=== PATIENT | female | born 1945 | race Two or more races ===

== ENCOUNTER 2018-04-15 14:14 | Emergency (ER) | payer OTHER, MEDICAID ==
[~2018-04-15] VITALS: Ht 165.1 cm; Wt 98.0 kg
[~2018-04-15 14:14] MED LIST: CHOL200072 PO; CITA20TA15 PO; EPHE1TAB PO; GABA400C PO; LEVO0.0511 PO; LEVO5TAB12 PO; OMEP40EC1 PO; RANI300T6 PO; [UNRECOGNIZED DRUG - CODE] PO
[2018-04-15 14:17] VITALS: BP 155/75
--- NOTE | 2018-04-15 15:06 | NUR ---
BIB DAUGHTER, PT C/O OF KNEE PAIN, SWELLING, ECCYMOSIS ON R KNEE, UNABLE TO AMBULATE. PT. STATES SHE FELL OFF OF BED WHEN REACHING OVER PHONE, INJURED HER FINGERED, AND HIT HER HEAD. PT DENIES HEADACHE, PAIN, LOOSING CONSCIOUSNESS. PT. REPORTS RECENT VASCULAR SURGICAL INTERVENTION 9 DAYS AND 3 WKS AGO. HX--HTN, PERIPHERAL VASCULAR DISEASE, ATHRITIS, DIABETES RX: GABAPENTIN, ALBUTEROL, METFORMIN, AND 4 MORE MEDICATION PATIENT CANNOT RECALL.
--- NOTE | 2018-04-15 15:14 | NUR ---
DR. SELLERS AT BEDSIDE EVALUATING PT.
[2018-04-15] MEDS ORDERED: MORPHINE SULFATE 4 MG/ML SYR IM ONE (15:20)
--- NOTE | 2018-04-15 15:23 | NUR ---
[facility] : FAINT.
[2018-04-15 15:54] VITALS: BP 128/61
--- NOTE | 2018-04-15 15:54 | NUR ---
Patient discharged with v/s stable. Written and verbal after care instructions given and explained. Patient alert, oriented and verbalized understanding of instructions. Wheel Chair Assisted, going home with daughter. All questions addressed prior to discharge. ID band removed. Patient advised to follow up with PMD. Rx Motrin, Prednisone, and [place] given. Patient educated on indication of medication including possible reaction and side effects. Opportunity to ask questions provided and answered.
== END 2018-04-15 15:54 | disposition home or self-care (01) ==
LOC: MED 14:14
DX: M25.561 Pain in right knee (principal); R05 Cough; J45.909 Unspecified asthma, uncomplicated; E11.9 Type 2 diabetes mellitus without complications; I10 Essential (primary) hypertension; E07.9 Disorder of thyroid, unspecified; Z79.899 Other long term (current) drug therapy
CPT/HCPCS: 29505; 73562; 96372; 99283; J2270; Q0092

== ENCOUNTER 2018-10-24 20:54 | Emergency (ER) | payer OTHER, MEDICAID ==
[~2018-10-24] VITALS: Ht 154.9 cm; Wt 98.9 kg
[2018-10-24 21:08] VITALS: BP 161/74
--- NOTE | 2018-10-24 21:24 | NUR ---
PT AMBULATORY TO ER BED 9
--- NOTE | 2018-10-24 21:36 | NUR ---
PT TO ED WITH C/O LACERATION TO L THUMB X TODAY. BLEEDING CONTROLLED AT THIS TIME. SMALL LACERATION TO L THUMB APPROX 1 CM IN LENGTH NOTED. PT PLACED INTO BED, PENDING MD OCHOA.
--- NOTE | 2018-10-24 21:59 | NUR ---
Dr. Peñaloza examining patient.
[2018-10-24 22:50] VITALS: BP 158/69
--- NOTE | 2018-10-24 22:50 | NUR ---
Patient discharged with v/s stable. Written and verbal after care instructions given and explained. Patient verbalized understanding. Ambulatory with steady gait. All questions addressed prior to discharge. Advised to follow up with PMD.
== END 2018-10-24 22:50 | disposition home or self-care (01) ==
LOC: MED 20:54
DX: S61.012A Laceration without foreign body of left thumb without damage to nail, initial encounter (principal); J45.909 Unspecified asthma, uncomplicated; E11.9 Type 2 diabetes mellitus without complications; I10 Essential (primary) hypertension; Z79.899 Other long term (current) drug therapy; Z79.84 Long term (current) use of oral hypoglycemic drugs; W26.8XXA Contact with other sharp object(s), not elsewhere classified, initial encounter; Y93.89 Activity, other specified; Y92.89 Other specified places as the place of occurrence of the external cause; Y99.8 Other external cause status
CPT/HCPCS: 12001; 90471; 90715; 99283

== ENCOUNTER 2019-05-02 11:44 | Inpatient (IN) | payer OTHER, MEDICAID ==
[~2019-05-02] VITALS: Ht 152.4 cm; Wt 98.4 kg
[~2019-05-02 11:44] MED LIST changes: -OMEP40EC1 PO; +OMEP40EC24 PO
[2019-05-02 11:50] VITALS: BP 135/55
[2019-05-02] MEDS ORDERED: MAG SULF 2000 MG/WATER PREMIX 50 ML IV ONE (12:00)
[2019-05-02] MEDS ORDERED: NACL 0.9% 500 ML IV ONE (12:00)
[2019-05-02] MEDS ORDERED: ALBUTEROL 0.083% 2.5 MG/3 ML NEBU INH ONE ×2 (12:00→13:25)
[2019-05-02] MEDS ORDERED: methylPREDNISolone SS 125 MG/2 ML VIAL IVP ONE (12:00)
[2019-05-02] MEDS ORDERED: IPRATROPIUM 0.02% 0.5 MG/2.5 ML NEBU INH ONE (12:00)
--- NOTE | 2019-05-02 12:05 | NUR ---
ERMD AT BEDSIDE EVALUATING PT
--- NOTE | 2019-05-02 12:13 | NUR ---
Breathing treatment administered by respiratory therapist at bedside.
--- NOTE | 2019-05-02 12:22 | NUR ---
FLU SWAB COLLECTED AND SENT TO LAB
[2019-05-02 12:26] LABS: BASOPHILS # (AUTO) 0.1 K/uL (0.00-0.22); BASOPHILS % (AUTO) 1.3 % (0.0-2.0); EOSINOPHILS # (AUTO) 0.7 K/uL (0-0.4); EOSINOPHILS % (AUTO) 5.8 % (0.0-4.0); HEMATOCRIT 32.5 % (36-48); LYMPHOCYTES # (AUTO) 2.3 K/uL (2.5-16.5); LYMPHOCYTES % (AUTO) 19.7 % (20.5-51.1); MEAN CORPUSCULAR HEMOGLOBIN 25 pg (27-31); MEAN CORPUSCULAR HGB CONC 31 g/dL (33-37); MEAN CORPUSCULAR VOLUME 80.7 fL (80-94); MONOCYTES # (AUTO) 1.3 K/uL (0.8-1.0); MONOCYTES % (AUTO) 10.9 % (1.7-9.3); NEUTROPHILS # (AUTO) 7.2 K/uL (1.8-7.7); NEUTROPHILS % (AUTO) 62.3 % (42.2-75.2); PLATELET COUNT (AUTO) 316 K/uL (140-450); RED BLOOD CELL COUNT(AUTO) 4.03 MIL/uL (4.20-5.40); RED CELL DISTRIBUTION WIDTH 18.4 % (11.6-13.7); WHITE BLOOD COUNT (AUTO) 11.5 K/uL (4.8-10.8)
[2019-05-02 12:44] LABS: PROTHROMBIN TIME 9.7 secs (10.8-13.4)
[2019-05-02 12:48] LABS: ALBUMIN 3.1 g/dL (3.4-5.0); ASPARTATE AMINOTRANSFERASE 21 U/L (15-37); CARBON DIOXIDE 28.8 mmol/L (21-32); CHLORIDE 109 mmol/L (98-107); POTASSIUM 4.8 mmol/L (3.5-5.1); SODIUM SERUM 143 mmol/L (136-145); TOTAL BILIRUBIN 0.2 mg/dL (0.0-1.0); UREA NITROGEN, BLOOD 22 mg/dL (7-18)
--- NOTE | 2019-05-02 12:52 | NUR ---
Dr. Mello is re-evaluating the patient at bedside.
[2019-05-02 13:00] LABS: GLUCOSE 36 mg/dL (74-106)
--- NOTE | 2019-05-02 13:03 | NUR ---
C/O SOB , FATIGUE, HACKING MOIST COUGH, BODYACHES--- FULL CLEAR SPEECH, WITH OBVIOUS ACCESSORY MUSCLE USE NOTED NASAL FLARE, SUPRACLAVICULAR, AND INTERCOSTAL MUSCLE USE NOTED PLACED ON 3L NC AND MONITOR----RT CALLED FOR BREATHING TX
--- NOTE | 2019-05-02 13:06 | NUR ---
ORANGE JUICE PROVIDED---PT REMAINS ALERT FULL SPEECH WITH ME AND DAUGHTER. FOOD TRAY ORDERED
[2019-05-02] MEDS ORDERED: NACL 0.9% 1,000 ML IV SCH (13:27)
[2019-05-02] MEDS ORDERED: HYDROcodone/APAP 5/325 MG 1 TAB TAB PO PRN ×2 (13:30→16:05)
[2019-05-02] MEDS ORDERED: DOCUSATE SODIUM 100 MG GELCAP PO PRN (13:30)
[2019-05-02] MEDS ORDERED: ACETAMINOPHEN 325 MG TAB PO PRN ×2 (13:30→16:05)
[2019-05-02] MEDS ORDERED: MORPHINE SULFATE 2 MG/ML SYR IVP PRN (13:30)
[2019-05-02] MEDS ORDERED: ONDANSETRON 4 MG/2 ML VIAL IM/IVP PRN (13:30)
[2019-05-02] MEDS ORDERED: IBUP-2213 PO (13:32)
[2019-05-02] MEDS ORDERED: METF1000 PO (13:32)
[2019-05-02] MEDS ORDERED: MONT10TA35 PO (13:32)
[2019-05-02] MEDS ORDERED: WARF1TAB PO (13:32)
--- NOTE | 2019-05-02 13:35 | NUR ---
Dr. Thomas is evaluating the patient at bedside.
[2019-05-02 14:10] VITALS: BP 141/53
--- NOTE | 2019-05-02 14:10 | NUR ---
RECEIVED PATIENT FROM ED VIA [facility]. RECEIVED REPORT FROM IRVIN ED NURSE. PATIENT IS ALERT AND ORIENTED X4. ABLE TO AMBULATE FROM GURNEY TO BED WITH ASSIST. O2 VIA NC @ 2L PLACED. PATIENT ADMITTED FOR DX: COPD EXACERBATION. PLAN OF CARE DISCUSSED WITH PATIENT AND DAUGHTER. ORIENTED PATIENT TO STAFF AND ROOM. CALL LIGHT WITHIN REACH. BED IN LOW POSITION. SAFETY MEASURES IN PLACE. Addendum: 05/02/19 at 1800 by Lazaro Salazar RN ADDITION TO NOTES: SKIN INTACT. IV INTACT AND PATENT TO RIGHT HAND 22G SALINE LOCK.
[2019-05-02] MEDS ORDERED: ALBUTEROL SULFATE/IPRATROPIU 3 ML SOL IH PRN (14:20)
--- NOTE | 2019-05-02 14:23 | NUR ---
Patient will be admitted to care of DR. REA. Admited to TELEMETRY. Will go to room 121A. Belongings list completed. Report to JUNIOR SANTAMARIA.
[2019-05-02 15:14] LABS: MAGNESIUM 1.6 mg/dL (1.8-2.4); PHOSPHORUS 3.4 mg/dL (2.5-4.9); THYROID STIMULATING HORMONE 2.82 uIU/mL (0.34-3.74)
--- NOTE | 2019-05-02 15:50 | NUR ---
PAGED DR. BAIG FOR ADMIT ORDERS.
[2019-05-02 16:00] VITALS: BP 121/54
[2019-05-02] MEDS ORDERED: IBUPROFEN 600 MG TAB PO SCH (16:00)
--- NOTE | 2019-05-02 16:00 | NUR ---
DR. BAIG WILL PLACE ADMIT ORDERS FOR PATIENT.
[2019-05-02] MEDS ORDERED: DEXTROSE 50% 50 ML SYR IVP PRN (16:05)
[2019-05-02] MEDS ORDERED: ONDANSETRON 4 MG/2 ML VIAL IVP PRN (16:05)
[2019-05-02] MEDS: BLOOD GLUCOSE MONITORING 1 DEV DEV FS SCH ×2 (16:44→20:54)
[2019-05-02] MEDS ORDERED: WARFARIN 1 MG TAB PO SCH (17:00)
[2019-05-02] MEDS: INSULIN LISPRO SLIDING SCALE 100 UNITS/ML VIAL SUBQ PRN ×2 (17:34→20:46)
[2019-05-02] MEDS: HYDROcodone/APAP 5/325 MG 1 TAB TAB PO PRN (17:47)
--- NOTE | 2019-05-02 17:50 | NUR ---
PATIENT MEDICATED FOR C/O GENERALIZED PAIN. PATIENT IS ALERT AND VERBALLY RESPONSIVE. DENIES SOB AT THIS TIME. O2 @ 2L VIA NC. PATIENT NOW SITTING UP FOR DINNER. NO S/S OF DISTRESS NOTED. FAMILY AT BEDSIDE. SAFETY MEASURES IN PLACE. IV INTACT AND PATENT TO RIGHT HAND 22G WITH SALINE LOCK. CALL LIGHT WITHIN REACH.
[2019-05-02] MEDS ORDERED: ALBUTEROL SULFATE/IPRATROPIU 3 ML SOL IH SCH ×2 (18:00→19:00)
--- NOTE | 2019-05-02 19:05 | NUR ---
REPORT GIVEN TO NIGHT NURSE. PATIENT IN STABLE CONDITION.
--- NOTE | 2019-05-02 19:10 | NUR ---
RECEIVED REPORT FROM EDUARDO PACHECO DAYSHIFT NURSE AT BEDSIDE FOR CONTINUITY OF CARE, PT IN STABLE CONDITION.
[2019-05-02] MEDS: IPRATROPIUM 0.02% 0.5 MG/2.5 ML NEBU INH SCH (19:30)
[2019-05-02] MEDS: ALBUTEROL 0.083% 2.5 MG/3 ML NEBU INH SCH (19:30)
--- NOTE | 2019-05-02 19:30 | NUR ---
PATIENT STATES THAT IF SHE IS ASLEEP AT 0100 DO NOT WAKE FOR HHN THERAPY
[2019-05-02 20:00] VITALS: BP 123/52
--- NOTE | 2019-05-02 20:00 | NUR ---
FAMILY AT BEDSIDE, REQUEST ORDERED FROM MD REGARDING PAIN RELIEVING FOOT CREAM SHE USES AT HOME NEEDED (DICLOFENAC SODIUM 1% GEL). WILL PAGE ADMITTING MD BAIG FOR ORDER. PT AND FAMILY CONCERNED ABOUT RECEIVING ORDERED NEURONTIN. PT AND FAMILY ASSURED THAT PT WILL RECEIVED ALL ORDERED MEDICATIONS. PT IN BED LYING DOWN WITH 2 LITER N/S. RESPIRATIONS EVEN AND UNLABORED. PT SKIN INTACT, SHE HAS 22G IV SITE SALINE LOCKED IN PLACE AND FLUSHED PATENT. V/S FOLLOWS: T 99.1 P 80 R 20 B/P 123/52 02 94% WITH 2 LITERS VIA N/C. PT BED IS LOW, SIDE RAIL SON LEFT SIDE DOWN, PT SAYS SHE HAS A DIFFICULTY TIME WITH PIVOT TRANSFER TO COMMODE WITH SIDE RAIL UP. ALL OTHER UNIVERSAL FALLS PRECAUTIONS IN PLACE.
[2019-05-02] MEDS: metFORMIN 500 MG TAB PO SCH (20:25)
[2019-05-02] MEDS: methylPREDNISolone SS 40 MG/ML VIAL IVP SCH (20:25)
[2019-05-02] MEDS: MONTELUKAST SODIUM 10 MG TAB PO SCH (20:26)
[2019-05-02] MEDS: GABAPENTIN 300 MG CAP PO SCH (20:26)
[2019-05-02] MEDS ORDERED: methylPREDNISolone SS 125 MG/2 ML VIAL IVP SCH (21:00)
--- NOTE | 2019-05-02 21:00 | NUR ---
PT RECEIVED TYLENOL FOR MILD H/A AND COOLING MEASURES ALONG WITH ICE PACKS. PT FINGERSTICK IS 407. MD BAIG PAGED REGARDING PT FINGERSTICK AND REQUESTED FOOT CREAM ORDER. MD BAIG PAGED BACK , HE SAID OK TO ORDER (DICLOFENAC SODIUM GEL) AT HOME MEDICATION FOR FOOT PAIN AND HE WAS MADE AWARE THAT FINGERSTICK IS 407. ORDERED TO GIVEN THE ORDERED INSULIN 10 UNITS HUMALOG COVERAGE. WILL CONTINUE TO MONITOR PT BLOOD SUGAR. PT ALSO RECEIVED ORDERED SOLUMEDROL IVP, GLUCAPHAGE, NEURONTIN AND SINGULAIR ORDERED. EDUCATION REGARDING MEDICATION PROVIDED IN [place] AT BEDSIDE,. WELL SIDE EFFECTS OF MEDICATION. PT VERBALIZED UNDERSTANDING. ALL REQUESTED NEEDS ATTENDED BY STAFF. AND CALL QUIGLEY IN REACH.
[2019-05-03] VITALS: BP 105/40
[2019-05-03] MEDS: LORazepam 2 MG/ML VIAL IVP PRN (00:06)
--- NOTE | 2019-05-03 00:10 | NUR ---
PT UP TO SINK AND BACK TO BRUSH TEETH STANDBY ASSISTANCE PROVIDED. PT C/O OF RESTLESSNESS AN NOT BEING ABLE TO SLEEP. PT DID SAY THAT SHE NO LONGER HAS PAIN IN HER FEET FROM THE DIABETIC NEUROPATHY. PT WAS GIVEN PRN/IVP ATIVAN TO PROVIDE A CALMING EFFECT. EDUCATION REGARDING MEDICATION PROVIDED TO PT BEDSIDE USING INFORMATION SECURITY DIRECTOR, PT VERBALIZED UNDERSTANDING. PT USED COMMODE AND IT WAS EMPTIED BY STAFF. PT CONTINUES ON 2 LITERS VIA N/C. V/S FOLLOWS: T 98.1 P 73 R 20 B/P 105/40 02 92% WITH 2 LITERS VIA N/C. ALL OTHER REQUESTED NEEDS ATTENDED AND CALL QUIGLEY IN REACH.
--- NOTE | 2019-05-03 00:58 | NUR ---
PATIENT ASLEEP AT THIS TIME RESTING COMFORTABLY NO SOB OBSERVED NOTED ON 05/02/2019 AT 1930 PATIENT DOES NOT WANT TO BE WAKEN FOR HHN THERAPY SAVANA/RN AWARE
[2019-05-03] MEDS: ALBUTEROL 0.083% 2.5 MG/3 ML NEBU INH SCH ×4 (01:00→19:51)
[2019-05-03] MEDS: IPRATROPIUM 0.02% 0.5 MG/2.5 ML NEBU INH SCH ×4 (01:00→19:51)
[2019-05-03 04:00] VITALS: BP 132/53
--- NOTE | 2019-05-03 04:00 | NUR ---
PT IN BED SLEEPING BUT AROUSABLE TO LIGHT TOUCH. RESPIRATIONS EVEN AND UNLABORED PT HAS 2 LITERS VIA N/C. V/S FOLLOWS: T 97.0 P 70 R 18 B/P 121/61 02 96% WITH 2 LITERS VIA N/C.
[2019-05-03] MEDS ORDERED: DICLOFENAC 25 MG TABEC PO PRN (04:35)
[2019-05-03 06:07] LABS: T4 (THYROXINE) 5.5 ug/dL (4.5-12.0)
[2019-05-03] MEDS: LEVOTHYROXINE 0.1 MG TAB PO SCH (06:09)
[2019-05-03] MEDS: methylPREDNISolone SS 40 MG/ML VIAL IVP SCH ×3 (06:11→21:28)
[2019-05-03] MEDS: INSULIN LISPRO SLIDING SCALE 100 UNITS/ML VIAL SUBQ PRN ×4 (06:18→21:23)
--- NOTE | 2019-05-03 06:20 | NUR ---
PT GIVEN ORDERED SYNTHROID. FINGERSTICK IS 249 PT GIVEN 4 UNITS HUMALOG COVERAGE. ALL REQUESTED NEEDS ATTENDED BY STAFF.
[2019-05-03] MEDS: BLOOD GLUCOSE MONITORING 1 DEV DEV FS SCH ×4 (06:22→21:14)
--- NOTE | 2019-05-03 07:15 | NUR ---
RECEIVED REPORT FROM NIGHT NURSE. PT IN BED RECEIVING A BREATHING TREATMENT. PT IS STABLE, 2L NC, RH 22G IS SL, INTRODUCE SELF, UPDATED WHITE BOARDS, CALL LIGHT WITHIN REACH.
[2019-05-03 07:42] LABS: BASOPHILS % (AUTO) 0.3 % (0.0-2.0); HEMATOCRIT 30.1 % (36-48); HEMOGLOBIN 9.2 g/dL (12.0-16.0); LYMPHOCYTES # (AUTO) 1.4 K/uL (2.5-16.5); LYMPHOCYTES % (AUTO) 10.3 % (20.5-51.1); MEAN CORPUSCULAR HEMOGLOBIN 25 pg (27-31); MEAN CORPUSCULAR HGB CONC 31 g/dL (33-37); MEAN CORPUSCULAR VOLUME 80.6 fL (80-94); MONOCYTES # (AUTO) 0.7 K/uL (0.8-1.0); MONOCYTES % (AUTO) 5.5 % (1.7-9.3); NEUTROPHILS # (AUTO) 11.2 K/uL (1.8-7.7); NEUTROPHILS % (AUTO) 83.9 % (42.2-75.2); PLATELET COUNT (AUTO) 307 K/uL (140-450); RED BLOOD CELL COUNT(AUTO) 3.74 MIL/uL (4.20-5.40); RED CELL DISTRIBUTION WIDTH 18.6 % (11.6-13.7); WHITE BLOOD COUNT (AUTO) 13.4 K/uL (4.8-10.8)
[2019-05-03 07:49] LABS: PROTHROMBIN TIME 9.9 secs (10.8-13.4)
[2019-05-03 08:00] VITALS: BP 142/64
[2019-05-03 08:16] LABS: CARBON DIOXIDE 25.1 mmol/L (21-32); CHLORIDE 105 mmol/L (98-107); GLUCOSE 242 mg/dL (74-106); POTASSIUM 5.1 mmol/L (3.5-5.1); SODIUM SERUM 138 mmol/L (136-145); UREA NITROGEN, BLOOD 28 mg/dL (7-18)
[2019-05-03] MEDS: GABAPENTIN 300 MG CAP PO SCH ×2 (08:39→21:29)
[2019-05-03] MEDS: metFORMIN 500 MG TAB PO SCH ×2 (08:40→21:29)
[2019-05-03] MEDS: CITALOPRAM 20 MG TAB PO SCH (08:40)
--- NOTE | 2019-05-03 09:00 | NUR ---
ADMINISTER PT ORDER MEDICATION AND EDUCATED PT ON SIDE EFFECTS, PT VERBALIZE UNDERSTANDING, PT TOLERATED MEDICATION, PT IS STABLE ON 2L NC, CALL LIGHT WITHIN REACH.
--- NOTE | 2019-05-03 09:06 | NUR ---
PT HAS BEEN SCREENED AND CATEGORIZED MODERATE NUTRITION RISK. PT WILL BE SEEN WITHIN 3-5 DAYS OF ADMISSION. 05/05/19-05/07/[address]
[2019-05-03 12:00] VITALS: BP 116/46
--- NOTE | 2019-05-03 12:00 | NUR ---
ADMINISTER HUMALOG, PER PROTOCOL FOR BLOOD SUGAR OF 243. PT TOLERATED MED WELL. FAMILY AT BEDSIDE, CALL LIGHT WITHIN REACH.
[2019-05-03 16:00] VITALS: BP 117/47
--- NOTE | 2019-05-03 16:50 | NUR ---
ADMINISTER HUMALOG, PER PROTOCOL FOR BLOOD GLUCOSE OF 179, PT TOLERATED WELL, CALL LIGHT WITHIN REACH.
[2019-05-03] MEDS ORDERED: WARFARIN 2.5 MG TAB PO SCH (17:00)
--- NOTE | 2019-05-03 19:20 | NUR ---
GAVE REPORT TO NIGHT NURSE FOR CONTINUITY OF CARE, PT IS RESTING IN BED ON HER CELLPHONE, PT IS STABLE, CALL LIGHT WITHIN REACH.
--- NOTE | 2019-05-03 19:25 | NUR ---
RECEIVED PT FROM DAY SHIFT NURSE PT MOROCCAN SPEAKER AAOX4 ON 06 08 LTS VIA NC, O;;N TELMETRY SR NOT SOB NOTED HL ON RT HAND PATENT INITIAL ASSESSMENT DONE
[2019-05-03 20:00] VITALS: BP 103/55
[2019-05-03] MEDS ORDERED: methylPREDNISolone SS 40 MG/ML VIAL IVP SCH (21:00)
[2019-05-03] MEDS: MONTELUKAST SODIUM 10 MG TAB PO SCH (21:29)
--- NOTE | 2019-05-03 21:30 | NUR ---
BLOOD SKUGAR TEST 237 COVERAGE WITH 4 UNITS HUMALOG SUBQ FOLLOW PROTOCOL
[2019-05-04] VITALS: BP 105/50
--- NOTE | 2019-05-04 01:00 | NUR ---
PT VOIDING WELL USING BSC ON TELEMETRY SR NOT DISTRESS SEEN AT THIS TIME
[2019-05-04] MEDS: LORazepam 2 MG/ML VIAL IVP PRN (01:22)
[2019-05-04] MEDS: IPRATROPIUM 0.02% 0.5 MG/2.5 ML NEBU INH SCH ×4 (01:35→19:42)
[2019-05-04] MEDS: ALBUTEROL 0.083% 2.5 MG/3 ML NEBU INH SCH ×4 (01:35→19:42)
--- NOTE | 2019-05-04 02:26 | NUR ---
PT VERBALIZED TO BE VERY ANXIOUS AND DIFFICULTY TO SLEEP ATIVAN GIVEN ORDER
[2019-05-04 04:00] VITALS: BP 90/44
[2019-05-04] MEDS: methylPREDNISolone SS 40 MG/ML VIAL IVP SCH ×3 (05:00→21:13)
--- NOTE | 2019-05-04 05:00 | NUR ---
SPONGE BATH GIVEN LINEN CHANGED ON TELE SR
[2019-05-04] MEDS: LEVOTHYROXINE 0.1 MG TAB PO SCH (06:04)
[2019-05-04] MEDS: BLOOD GLUCOSE MONITORING 1 DEV DEV FS SCH ×4 (06:53→21:11)
[2019-05-04] MEDS: INSULIN LISPRO SLIDING SCALE 100 UNITS/ML VIAL SUBQ PRN ×4 (06:54→21:54)
--- NOTE | 2019-05-04 07:00 | NUR ---
RECEIVED REPORT FROM NIGHT RN ANGELINA. PATIENT CAME FROM HOME, FULL CODE, NKA. PATIENT HAS AN IV TO RIGHT [place] 22G. CURRENTLY, PATIENT IS RECEIVING BREATHING TX, COUGH PRESENT, NO RESP DISTRESS NOTED. PATIENT IS AAOX4, AMBULATORY, USES BEDSIDE COMMODE. PATIENT IS ON NASAL CANNULA 2L. WILL REVIEW AND CONTINUE WITH PLAN OF CARE FOR THE DAY.
[2019-05-04 07:19] LABS: PROTHROMBIN TIME 9.8 secs (10.8-13.4)
[2019-05-04 07:23] LABS: BASOPHILS % (AUTO) 0.1 % (0.0-2.0); HEMATOCRIT 29.6 % (36-48); HEMOGLOBIN 9.2 g/dL (12.0-16.0); LYMPHOCYTES # (AUTO) 1.5 K/uL (2.5-16.5); LYMPHOCYTES % (AUTO) 9.2 % (20.5-51.1); MEAN CORPUSCULAR HEMOGLOBIN 25 pg (27-31); MEAN CORPUSCULAR HGB CONC 31 g/dL (33-37); MONOCYTES # (AUTO) 1.3 K/uL (0.8-1.0); MONOCYTES % (AUTO) 8.2 % (1.7-9.3); NEUTROPHILS # (AUTO) 13.2 K/uL (1.8-7.7); NEUTROPHILS % (AUTO) 82.5 % (42.2-75.2); PLATELET COUNT (AUTO) 324 K/uL (140-450); RED BLOOD CELL COUNT(AUTO) 3.65 MIL/uL (4.20-5.40); RED CELL DISTRIBUTION WIDTH 18.3 % (11.6-13.7)
[2019-05-04 07:26] LABS: ANION GAP 12.9 (8-16); CHLORIDE 104 mmol/L (98-107); CREATININE 0.9 mg/dL (0.6-1.3); GLUCOSE 194 mg/dL (74-106); POTASSIUM 4.9 mmol/L (3.5-5.1); SODIUM SERUM 137 mmol/L (136-145); UREA NITROGEN, BLOOD 32 mg/dL (7-18)
[2019-05-04 08:00] VITALS: BP 135/48
[2019-05-04] MEDS: CITALOPRAM 20 MG TAB PO SCH (08:37)
[2019-05-04] MEDS: metFORMIN 500 MG TAB PO SCH ×2 (08:37→21:12)
[2019-05-04] MEDS: GABAPENTIN 300 MG CAP PO SCH ×2 (08:38→21:13)
--- NOTE | 2019-05-04 08:44 | NUR ---
ADMINISTERED MORNING MEDICATION. PATIENT IS SITTING UP IN CHAIR AT BEDSIDE EATING BREAKFAST. PATIENT IS ASKING WHEN SHE WILL BE ABLE TO GO HOME. INFORMED PATIENT THAT WHEN DOCTOR MAKES HIS ROUNDS, I WILL F/U. NO FURTHER COMPLAINTS.
--- NOTE | 2019-05-04 11:30 | NUR ---
PATIENT C/O HAVING CHILLS. TOOK ORAL TEMP, 98.5.
--- NOTE | 2019-05-04 11:48 | NUR ---
ADMINISTERED 4U INSULIN SUBQ FOR BLOOD SUGAR OF 209.
[2019-05-04 12:00] VITALS: BP 115/41
--- NOTE | 2019-05-04 13:20 | NUR ---
PATIENT SITTING IN CHAIR AT BEDSIDE EATING LUNCH. NO COMPLAINTS AT THIS TIME. RT AT BEDSIDE GIVING BREATHING TX.
--- NOTE | 2019-05-04 15:10 | NUR ---
PATIENT IS SLEEPING, VISIBLE CHEST RISE AND FALL. NO COMPLAINTS AT THIS TIME.
[2019-05-04 16:00] VITALS: BP 122/47
[2019-05-04] MEDS ORDERED: WARFARIN 5 MG TAB PO SCH (17:00)
--- NOTE | 2019-05-04 17:45 | NUR ---
PATIENT STATED "I TOLD MY I DONT WANT HIM TO VISIT BECAUSE I JUST WANT TO REST".
--- NOTE | 2019-05-04 18:20 | NUR ---
PATIENT RESTING IN BED, EATING DINNER. ALL NEEDS HAVE BEEN MET AT THIS TIME. WILL ENDORSE TO HEAD BANQUET WAITER/WAITRESS FOR CONTINUITY OF CARE.
--- NOTE | 2019-05-04 19:20 | NUR ---
RECEIVED REPORT FROM DAYSHIFT NURSE AT PATIENTS BEDSIDE. PATIENT ANOx4, CURRENTLY RECEIVED BREATHING TREATMENT. PATIENT HAS NASAL CANNULA IN PLACE WITH 2LPM, SATURATIONS 97%. WHEEZING NOTED AT UPPER AND LOWER LOBES. COUGH NOTED WITH INTERMITTENT PRODUCTION, CREAMY/WHITE SECRETIONS NOTED. PATIENT GIVEN EMESIS BAG. SKIN IS WARM AND DRY, AFEBRILE. RIGHT HAND 22G PERIPHERAL IV IN PLACE, FLUSHED AND PATENT WITH NO SYMPTOMS, SALINE LOCKED. S1S2. ABDOMEN IS LARGE AND NONTENDER, ACTIVE BOWEL SOUNDS. PATIENT IS CONTINENT, AMBULATES TO BEDSIDE COMMODE, REQUESTS TO USE BATHROOM FOR BOWEL MOVEMENTS. SIDERAILS UP x3, BED LOCKED AND IN LOWEST POSITION, CALL LIGHT WITHIN REACH AND ORIENTED TO CALL LIGHT WHEN PATIENT HAS TOILETING NEEDS. WILL CONTINUE TO MONITOR.
[2019-05-04 20:00] VITALS: BP 125/46
--- NOTE | 2019-05-04 20:17 | NUR ---
PATIENT UP AND OUT OF BED TO USE RESTROOM. ABLE TO AMBULATE WITHOUT ASSISTANCE. NASAL CANNULA OFF TO USE RESTROOM. COMMODE AT BEDSIDE FOR VOIDING. PATIENT SITTING AT BEDSIDE WITH NASAL CANNULA 2L, WILL GO BACK TO BED AFTER SCHEDULED MEDS. NO COMPLAINTS AT THIS TIME.
[2019-05-04] MEDS: MONTELUKAST SODIUM 10 MG TAB PO SCH (21:14)
--- NOTE | 2019-05-04 21:30 | NUR ---
SCHEDULED MEDICATIONS ADMINISTERED. PROVIDED EDUCTION ON INDICATIONS AND SIDE EFFECTS. PATIENT VERBALIZES UNDERSTANDING. BLOOD SUGAR 205, GAVE 4 UNITS INSULIN PER SLIDING SCALE. PATIENT TOLERATES WELL. SITTING UP AT BEDSIDE, NASAL CANNULA IN PLACE 2LPM, TEST DEVELOPER IN PLACE.
--- NOTE | 2019-05-04 23:40 | NUR ---
PATIENT RESTING IN BED, LYING RIGHT LATERAL. PATIENT EXPERIENCING COUGHING EPISODES, GIVEN EMESIS BAG TO ELIMINATE SECRETIONS. PATIENT KINDLY ASKS TO CLEAN BEDSIDE COMMODE, PATIENT VOIDED. WILL CARRY OUT. PATIENT DENIES PAIN.
[2019-05-05] VITALS: BP 128/45
--- NOTE | 2019-05-05 00:25 | NUR ---
PATIENT EXPERIENCING RESTLESSNESS/ANXIETY DUE TO INABILITY TO SLEEP. PATIENT AGITATED, REQUESTING MEDICATION TO RELIEVE ANXIETY AND TO HELP SLEEP. PRN ATIVAN GIVEN. BLOOD PRESSURE AND HEART RATE STABLE. WILL CONTINUE TO MONITOR AND REASSESS.
[2019-05-05] MEDS: LORazepam 2 MG/ML VIAL IVP PRN ×2 (00:34→20:26)
[2019-05-05] MEDS: ALBUTEROL 0.083% 2.5 MG/3 ML NEBU INH SCH ×4 (01:00→20:45)
[2019-05-05] MEDS: IPRATROPIUM 0.02% 0.5 MG/2.5 ML NEBU INH SCH ×4 (01:00→20:45)
--- NOTE | 2019-05-05 01:30 | NUR ---
PT INFORMED REHAB MANAGER NOT TO WAKE HER UP WHEN SLEEPING. PT WAS SLEEPING WHEN AT 01:30 THEREFORE TX WAS NOT GIVEN. RN AT BEDSIDE.
--- NOTE | 2019-05-05 03:30 | NUR ---
PATIENT USING BEDSIDE COMMODE TO VOID. TOLERATED WELL. CALLED CONCIERGE MANAGER TO SHOW HER THERES WATER ON THE FLOOR BUT DOES NOT KNOW WHERE IT CAME FROM. PATIENT IS CONTINENT, STATES TOILET MAY HAVE OVERFLOWN WITH TOO MUCH TISSUE PAPER. PATIENT SITTING UP IN CHAIR TO ALLOW RN TO CLEAN BED AND BEDSIDE. GOWN IS CLEAN AND DRY, NO COMPLAINTS AT THIS TIME.
[2019-05-05 04:00] VITALS: BP 121/51
--- NOTE | 2019-05-05 04:55 | NUR ---
LABS DRAWN, PATIENT TOLERATED WELL. CONTINUOUS COUGH NOTED, SMALL AMOUNT OF SECRETIONS NOTED. ASSISTED PATIENT WITH REPOSITIONING. DENIES PAIN.
[2019-05-05] MEDS: LEVOTHYROXINE 0.1 MG TAB PO SCH (05:44)
[2019-05-05] MEDS: methylPREDNISolone SS 40 MG/ML VIAL IVP SCH ×2 (05:44→20:16)
[2019-05-05 06:31] LABS: BASOPHILS # (AUTO) 0.1 K/uL (0.00-0.22); BASOPHILS % (AUTO) 0.6 % (0.0-2.0); EOSINOPHILS % (AUTO) 0.3 % (0.0-4.0); HEMATOCRIT 30.9 % (36-48); HEMOGLOBIN 9.5 g/dL (12.0-16.0); LYMPHOCYTES # (AUTO) 1.3 K/uL (2.5-16.5); LYMPHOCYTES % (AUTO) 8.9 % (20.5-51.1); MEAN CORPUSCULAR HEMOGLOBIN 25 pg (27-31); MEAN CORPUSCULAR HGB CONC 31 g/dL (33-37); MEAN CORPUSCULAR VOLUME 81.2 fL (80-94); MONOCYTES # (AUTO) 0.7 K/uL (0.8-1.0); MONOCYTES % (AUTO) 4.8 % (1.7-9.3); NEUTROPHILS % (AUTO) 85.4 % (42.2-75.2); PLATELET COUNT (AUTO) 378 K/uL (140-450); RED BLOOD CELL COUNT(AUTO) 3.81 MIL/uL (4.20-5.40); WHITE BLOOD COUNT (AUTO) 14.1 K/uL (4.8-10.8)
[2019-05-05] MEDS: INSULIN LISPRO SLIDING SCALE 100 UNITS/ML VIAL SUBQ PRN ×5 (06:54→20:24)
--- NOTE | 2019-05-05 07:30 | NUR ---
RECEIVED PT FROM HEALTH AND SAFETY CONSULTANT NURSEREUBEN, PT IS AWAKE AND LYING ON THE BED WITH SIDE RAILS UP AND CALL LIGHT WITHIN REACH, IV LINE ON THE RT HAND G. 22 ON SALINE LOCK, BEDSIDE COMMODE IN PLACE, SAFETY AND FALL PRECAUTION ENFORCED, PT DENIES PAIN ON O2 2L NC, DENIES SOB, NO SIGN OF DISTRESS NOTED AND WILL CONTINUE TO MONITOR PT.
[2019-05-05 07:31] LABS: PROTHROMBIN TIME 10.4 secs (10.8-13.4)
[2019-05-05 08:00] VITALS: BP 132/58
[2019-05-05] MEDS: BLOOD GLUCOSE MONITORING 1 DEV DEV FS SCH ×4 (08:00→20:22)
[2019-05-05] MEDS: CITALOPRAM 20 MG TAB PO SCH (09:36)
[2019-05-05] MEDS: metFORMIN 500 MG TAB PO SCH ×2 (09:36→20:17)
--- NOTE | 2019-05-05 09:36 | NUR ---
PT IS AWAKE AND AM MEDICATIONS SCHEDULED WERE GIVEN AND TOLERATED IT, INSULIN WAS REFUSED BY PT FOR THE BLOOD GLUCOSE OF 157, AND PT VERBALIZED THAT SHE DID NOT EACH MUCH ON BREAKFAST. WILL MONITOR PT.
[2019-05-05] MEDS: GABAPENTIN 300 MG CAP PO SCH ×2 (09:37→20:17)
--- NOTE | 2019-05-05 09:56 | NUR ---
DR. GAVIN MADE A TELEPHONE ORDER TO CHANGE THE PT'S SOLU-MEDROL TO 40MG Q12H, ORDER READ BACK AND VERIFIED AND WILL BE CARRIED OUT.
--- NOTE | 2019-05-05 11:08 | NUR ---
DC PLANNING 73 YRS OLD FEMALE PATIENT WAS ADMITTED FROM HOME WITH A DX OF COPD EXACERBATION. PT HAS A HX OF ASTHMA, DM, COPD HTN, AND HYPOTHYROIDISM INFLUENZA A &B NEGATIVE, CXR SHOWED EARLY CHF , RIGHT BASILAR AND LLL ATELECTASIS AND OSTEOPENIA. RT PROTOCOL INITIATED, ADMINISTERED IV SOLU-MEDROL, MAG RIDER FOR MG LEVEL 1.6 AND IVF. ID CONSULT WITH DR HUTCHINSON FOR LEUKOCYTOSIS AND PULMO CONSULT DR GAVIN FOR COPD . DC PLAN TO GO HOME WHEN STABLE CM TO FOLLOW. Addendum: 05/09/19 at 0918 by Yelitza Skinner CM DC PLANNING: TODAY'S CXR CARDIOMEGALY WITH PULMONARY VASCULAR CONGESTION ,SUPERIMPOSED INFILTRATE IS NOT EXCLUDED , WBC 14.8 ON LEVAQUIN , LASIX AND SOLU-MEDROL IV . NEW ORDER [facility] EVALUATION FAXED ALL PAPERWORK TO CM TO FOLLOW Addendum: 05/09/19 at 1120 by Yelitza Skinner CM DC PLANNING SPOKE WITH DR BAIG REGARDING THE LTAC EVALUATION THAT DOES NOT MEET THE CRITERIA FOR LTAC BECAUSE OF PT IS ONLY ON ONE ABX. DR BAIG STATED HE IS WAITING FOR THE SENSITIVITY OF THE FINAL SPUTUM CULTURE. CALLED LAB SPOKE WITH CHARLES BURRIS AND STATED THERE IS NO SENSITIVITY OF MORAXELLA CATARRHALIS . WAITING FOR DR BAIG TO CALL BACK.
--- NOTE | 2019-05-05 11:40 | NUR ---
PT WAS GIVEN INSULIN 2 UNITS ON THE ABDOMEN FOR THE BLOOD GLUCOSE OF 199. TEACHING WAS GIVEN TO PT REGARDING DIABETES MANAGEMENT AND PT VERBALIZED UNDERSTANDING. WILL MONITOR PT.
[2019-05-05 12:00] VITALS: BP 133/60
[2019-05-05] MEDS ORDERED: DICLOFENAC 1% TP PRN (12:00)
--- NOTE | 2019-05-05 13:15 | NUR ---
PT IS SLEEPING NOW WITH ON THE BEDSIDE.
[2019-05-05 16:00] VITALS: BP 120/45
[2019-05-05] MEDS ORDERED: WARFARIN 5 MG TAB ONE (16:33)
[2019-05-05] MEDS ORDERED: WARFARIN 2.5 MG TAB ONE (16:33)
--- NOTE | 2019-05-05 16:48 | NUR ---
PT WAS GIVEN THE SCHEDULED ORAL MEDICATION AND INSULIN 2 UNITS ON THE ABDOMEN FOR THE BLOOD GLUCOSE OF 155, WILL MONITOR PT
[2019-05-05] MEDS ORDERED: WARFARIN 5 MG, WARFARIN 2.5 MG PO SCH ×2 (17:00)
[2019-05-05 17:33] LABS: APPEARANCE,URINE CLEAR (CLEAR); BILIRUBIN,URINE NEGATIVE (NEGATIVE); BLOOD, URINE NEGATIVE (NEGATIVE); COLOR,URINE YELLOW (YELLOW); LEUKOCYTE ESTERASE ,URINE NEGATIVE (NEGATIVE); NITRITE, URINE NEGATIVE (NEGATIVE); UGLUCOSE NEGATIVE (NEGATIVE)
--- NOTE | 2019-05-05 19:00 | NUR ---
PT IS SLEEPING. NO SIGNS OF DISTRESS. REPORT GIVEN TO PARTS ADVISOR NURSE FOR CONTINUITY OF CARE.
--- NOTE | 2019-05-05 19:18 | NUR ---
ENDORSED PT TO COIL WINDING SUPERVISOR NURSESANDY, FOR CONTINUITY FOR CARE.
--- NOTE | 2019-05-05 19:19 | NUR ---
REPORT RECEIVED FROM AM NURSE AT BEDSIDE. PT IN STABLE CONDITION. AAOX4. INTRODUCED SELF TO PT. BOARD UPDATED. NO COMPLAINTS OF PAIN. NO SOB ON 2L O2 VIA NC. AFEBRILE. PT IS AMBULATORY. IV SITE R HAND 22G SL PATENT AND INTACT. SKIN WARM, DRY, AND INTACT WITH NO OPEN WOUNDS. BED LOCKED IN LOW POSITION. CALL QUIGLEY WITHIN REACH. SAFETY PRECAUTION IN PLACE. ALL NEEDS MET AT THIS TIME.
[2019-05-05 20:00] VITALS: BP 123/40
--- NOTE | 2019-05-05 20:16 | NUR ---
SOLUMEDROL GIVEN IVP. GLUCOPHAGE, NEURONTIN, AND SINGULAR GIVEN PO. BS 156. 2 UNITS OF HUMALOG GIVEN SUBQ. PT TOLERATED WELL.
[2019-05-05] MEDS: MONTELUKAST SODIUM 10 MG TAB PO SCH (20:17)
--- NOTE | 2019-05-05 20:26 | NUR ---
ATIVAN GIVEN FOR AGITATION. PT TOLERATED WELL.
--- NOTE | 2019-05-05 21:05 | NUR ---
RECEIVED PATIENT ON 2L NASAL CANNULA, PULSE OX SAT 97%. SCHEDULED BREATHING TREATMENTS ADMINISTERED. TOLERATED TXs WELL WITHOUT ADVERSE SIDE EFFECTS. NO ACUTE RESPIRATORY DISTRESS NOTED AT THIS TIME. WILL CONTINUE TO MONITOR.
--- NOTE | 2019-05-05 22:05 | NUR ---
PT SLEEPING COMFORTABLY BUT AROUSABLE. NO S/S OF DISTRESS NOTED. WILL CONTINUE TO MONITOR.
--- NOTE | 2019-05-05 23:30 | NUR ---
PT SLEEP BUT AROUSABLE. NO S/S OF DISTRESS NOTED. VS STABLE. WILL CONTINUE TO MONITOR.
[2019-05-06] VITALS: BP 132/54
[2019-05-06] MEDS: ALBUTEROL 0.083% 2.5 MG/3 ML NEBU INH SCH ×4 (01:23→19:44)
[2019-05-06] MEDS: IPRATROPIUM 0.02% 0.5 MG/2.5 ML NEBU INH SCH ×4 (01:23→19:44)
--- NOTE | 2019-05-06 01:30 | NUR ---
PT SLEEPING COMFORTABLY BUT AROUSABLE. NO S/S OF DISTRESS NOTED. NO COMPLAINTS OF PAIN. NO SOB. AFEBRILE. WILL CONTINUE TO MONITOR.
--- NOTE | 2019-05-06 01:54 | NUR ---
SCHEDULED BREATHING TREATMENT ADMINISTERED. TOLERATED TX WELL WITHOUT ADVERSE SIDE EFFECTS. NO ACUTE RESPIRATORY DISTRESS NOTED AT THIS TIME. WILL CONTINUE TO MONITOR.
--- NOTE | 2019-05-06 03:45 | NUR ---
PT SLEEPING COMFORTABLY BUT AROUSABLE. NO S/S OF DISTRESS NOTED. RESPIRATIONS EVEN, UNLABORED, AND WNL. WILL CONTINUE TO MONITOR.
[2019-05-06 04:00] VITALS: BP 117/34
[2019-05-06] MEDS: BLOOD GLUCOSE MONITORING 1 DEV DEV FS SCH ×4 (05:02→21:05)
[2019-05-06] MEDS: LEVOTHYROXINE 0.1 MG TAB PO SCH (05:38)
--- NOTE | 2019-05-06 05:38 | NUR ---
SYNTHROID GIVEN PO. BS 154. 2 UNITS OF HUMALOG GIVEN. PT TOLERATED WELL.
[2019-05-06] MEDS: INSULIN LISPRO SLIDING SCALE 100 UNITS/ML VIAL SUBQ PRN ×4 (05:40→20:55)
[2019-05-06 06:25] LABS: PROTHROMBIN TIME 12.4 secs (10.8-13.4)
[2019-05-06 06:28] LABS: BASOPHILS % (AUTO) 0.4 % (0.0-2.0); HEMOGLOBIN 9.6 g/dL (12.0-16.0); LYMPHOCYTES # (AUTO) 1.2 K/uL (2.5-16.5); LYMPHOCYTES % (AUTO) 9.8 % (20.5-51.1); MEAN CORPUSCULAR HEMOGLOBIN 25 pg (27-31); MEAN CORPUSCULAR HGB CONC 31 g/dL (33-37); MEAN CORPUSCULAR VOLUME 80.5 fL (80-94); MONOCYTES # (AUTO) 0.9 K/uL (0.8-1.0); MONOCYTES % (AUTO) 7.5 % (1.7-9.3); NEUTROPHILS # (AUTO) 10.1 K/uL (1.8-7.7); NEUTROPHILS % (AUTO) 82.3 % (42.2-75.2); PLATELET COUNT (AUTO) 320 K/uL (140-450); RED BLOOD CELL COUNT(AUTO) 3.86 MIL/uL (4.20-5.40); RED CELL DISTRIBUTION WIDTH 18.2 % (11.6-13.7); WHITE BLOOD COUNT (AUTO) 12.3 K/uL (4.8-10.8)
--- NOTE | 2019-05-06 06:40 | NUR ---
PT SLEEPING COMFORTABLY BUT AROUSABLE. PT IN STABLE CONDITION.
[2019-05-06 06:44] LABS: ALBUMIN 2.8 g/dL (3.4-5.0); ANION GAP 15.4 (8-16); ASPARTATE AMINOTRANSFERASE 41 U/L (15-37); CARBON DIOXIDE 28.6 mmol/L (21-32); CHLORIDE 101 mmol/L (98-107); CREATININE 0.9 mg/dL (0.6-1.3); GLUCOSE 157 mg/dL (74-106); MAGNESIUM 1.6 mg/dL (1.8-2.4); PHOSPHORUS 3.6 mg/dL (2.5-4.9); SODIUM SERUM 140 mmol/L (136-145); TOTAL BILIRUBIN 0.2 mg/dL (0.0-1.0); UREA NITROGEN, BLOOD 32 mg/dL (7-18)
--- NOTE | 2019-05-06 07:15 | NUR ---
RECEIVED REPORT FROM THE ENTRY LEVEL PROJECT COORDINATOR NURSE. PT IS AWAKE AND ORIENTED. INTRODUCED MYSELF AND UPDATED THE BOARD. PT SPEAKS SOME SW[place], ENOUGH TO HAVE CONVERSATION. PT IS HERE FOR COPD EXACERBATION. PT HAS NC O2 2L. BSC AT BEDSIDE. PT IV ON R HAND 22G SL. WILL CONTINUE TO MONITOR PT.
[2019-05-06 08:00] VITALS: BP 119/41
[2019-05-06] MEDS: GABAPENTIN 300 MG CAP PO SCH ×2 (08:35→20:51)
[2019-05-06] MEDS: CITALOPRAM 20 MG TAB PO SCH (08:35)
[2019-05-06] MEDS: metFORMIN 500 MG TAB PO SCH ×2 (08:35→20:52)
[2019-05-06] MEDS: OSELTAMIVIR PHOSPHATE 75 MG CAP PO SCH ×2 (08:35→20:52)
[2019-05-06] MEDS: methylPREDNISolone SS 40 MG/ML VIAL IVP SCH ×2 (08:36→20:52)
[2019-05-06] MEDS ORDERED: MAG SULF 2000 MG/WATER PREMIX 50 ML IV SCH (08:37)
--- NOTE | 2019-05-06 08:40 | NUR ---
ADMINISTERED MORNING MEDICATION. WENT OVER ALL THE MEDS AND SIDE EFFECTS. PT VERBALIZED UNDERSTANDING. PT TOLERATED WELL. WILL CONTINUE TO MONITOR PT.
--- NOTE | 2019-05-06 10:33 | NUR ---
IV IS INFILTRATED. STARTED A NEW IV ON L WRIST 22G. PT TOLERATED WELL. ADMINISTERED MAG RIDER 2G. INFUSING WELL. WILL CONTINUE TO MONITOR PT.
[2019-05-06 12:00] VITALS: BP 132/73
[2019-05-06] MEDS ORDERED: INTERDRY CLOTH TP PRN (14:40)
[2019-05-06 16:00] VITALS: BP 106/38
[2019-05-06] MEDS ORDERED: WARFARIN 2.5 MG TAB ONE (16:47)
[2019-05-06] MEDS ORDERED: WARFARIN 5 MG TAB ONE (16:47)
[2019-05-06] MEDS ORDERED: WARFARIN 5 MG, WARFARIN 2.5 MG PO SCH ×2 (17:00)
--- NOTE | 2019-05-06 19:28 | NUR ---
ENDORSED PT TO THE PRIVATE DUTY NURSE NURSE. PT IS IN STABLE CONDITION.
--- NOTE | 2019-05-06 19:29 | NUR ---
RECEIVED BEDSIDE REPORT FROM AM SHIFT NURSE. PATIENT IS LAYING ON BED AWAKE AND ALERT. NO SOB OR DISTRESS NOTED. PATIENT IS ON 2LPM VIA NASAL CANNULA. IV ACCESS ON LEFT WRIST 22 GAUGE PATENT, INTACT AND INFUSING WELL. SKIN IS INTACT. PATIENT IS AMBULATORY. INITIAL ASSESSMENT DONE. BED IN LOW, SAFETY MEASURES IN PLACE. BOARD UPDATED. ON TELE MONITORING. CALL LIGHT WITHIN PATIENT REACH.
[2019-05-06 20:20] VITALS: BP 112/37
[2019-05-06] MEDS: MONTELUKAST SODIUM 10 MG TAB PO SCH (20:52)
[2019-05-06] MEDS: LORazepam 2 MG/ML VIAL IVP PRN (21:22)
--- NOTE | 2019-05-06 22:40 | NUR ---
PATIENT TRANSFERRED FROM ROOM 121A TO 119A AT THIS TIME PER FAMILY REQUEST. NO SOB OR DISTRESS NOTED. CALL LIGHT PLACED WITHIN PATIENT REACH. WILL CONTINUE TO MONITOR PATIENT.
--- NOTE | 2019-05-07 00:10 | NUR ---
VITALS CHECKED AT THIS TIME. NO SOB OR DISTRESS NOTED. WILL CONTINUE TO MONITOR PATIENT.
[2019-05-07 00:19] VITALS: BP 123/47
[2019-05-07] MEDS: IPRATROPIUM 0.02% 0.5 MG/2.5 ML NEBU INH SCH ×4 (01:05→19:40)
[2019-05-07] MEDS: ALBUTEROL 0.083% 2.5 MG/3 ML NEBU INH SCH ×4 (01:05→19:40)
--- NOTE | 2019-05-07 02:27 | NUR ---
VISUAL CHECK DONE AT THIS TIME. VISIBLE CHEST RISE AND FALL NOTED. WILL CONTINUE TO MONITOR PATIENT.
--- NOTE | 2019-05-07 03:30 | NUR ---
VITALS DONE AT THIS TIME. NO DISTRESS NOTED. WILL CONTINUE TO MONITOR PATIENT.
[2019-05-07 04:15] VITALS: BP 114/36
[2019-05-07 06:28] LABS: PROTHROMBIN TIME 16.7 secs (10.8-13.4)
[2019-05-07] MEDS: LEVOTHYROXINE 0.1 MG TAB PO SCH (06:28)
[2019-05-07] MEDS: INSULIN LISPRO SLIDING SCALE 100 UNITS/ML VIAL SUBQ PRN ×2 (06:28→17:00)
[2019-05-07 06:30] LABS: BASOPHILS % (AUTO) 0.2 % (0.0-2.0); LYMPHOCYTES # (AUTO) 1.2 K/uL (2.5-16.5); MEAN CORPUSCULAR HEMOGLOBIN 25 pg (27-31); MEAN CORPUSCULAR HGB CONC 31 g/dL (33-37); MONOCYTES # (AUTO) 0.7 K/uL (0.8-1.0); NEUTROPHILS # (AUTO) 10.5 K/uL (1.8-7.7); NEUTROPHILS % (AUTO) 83.8 % (42.2-75.2); PLATELET COUNT (AUTO) 349 K/uL (140-450); WHITE BLOOD COUNT (AUTO) 12.5 K/uL (4.8-10.8)
[2019-05-07] MEDS: BLOOD GLUCOSE MONITORING 1 DEV DEV FS SCH ×4 (06:33→21:00)
[2019-05-07 06:42] LABS: ANION GAP 12.7 (8-16); CARBON DIOXIDE 30.1 mmol/L (21-32); CHLORIDE 101 mmol/L (98-107); CREATININE 0.9 mg/dL (0.6-1.3); GLUCOSE 181 mg/dL (74-106); POTASSIUM 4.8 mmol/L (3.5-5.1); SODIUM SERUM 139 mmol/L (136-145); UREA NITROGEN, BLOOD 29 mg/dL (7-18)
--- NOTE | 2019-05-07 07:17 | NUR ---
PATIENT IN STABLE CONDITION. CALL LIGHT WITHIN PATIENT REACH. WILL ENDORSE TO AM SHIFT NURSE FOR CONTINUITY OF CARE.
--- NOTE | 2019-05-07 07:18 | NUR ---
RECEIVED BEDSIDE REPORT FROM AUDIO VISUAL TECH NURSE. PATIENT IS AWAKE, ALERT AND ORIENTEDX4. NO SIGNS OF DISTRESS ON 2L NC. SKIN IS INTACT, REDNESS IN ABD FOLD. INTERDRY APPLIED. PATIENT IS AMBULATORY W ASSIST TO BEDSIDE COMMODE. CONTINENT. ABLE TO MAKE NEEDS KNOWN. IV ON L WRIST 22G TKO, CLEAN, DRY AND INTACT. TELE MONITOR IN PLACE. BED IN LOW POSITION. CALL LIGHT WITHIN REACH. WILL CONTINUE TO MONITOR
[2019-05-07 08:00] VITALS: BP 99/37
[2019-05-07] MEDS: CITALOPRAM 20 MG TAB PO SCH (09:39)
[2019-05-07] MEDS: GABAPENTIN 300 MG CAP PO SCH ×2 (09:39→21:01)
[2019-05-07] MEDS: metFORMIN 500 MG TAB PO SCH ×2 (09:40→21:01)
[2019-05-07] MEDS: methylPREDNISolone SS 40 MG/ML VIAL IVP SCH ×2 (09:40→21:00)
[2019-05-07] MEDS: OSELTAMIVIR PHOSPHATE 75 MG CAP PO SCH ×2 (09:40→21:01)
[2019-05-07] MEDS: LEVOFLOXACIN 500 MG TAB PO SCH (09:40)
--- NOTE | 2019-05-07 09:40 | NUR ---
OLD IV REMOVED, INFILTRATED. TIP INTACT. NEW IV ON R HAND 22G SL, CLEAN, DRY AND INTACT. ADMINISTERED MEDS. PATIENT TOLERATED WELL. EDUCATED ON SIDE EFFECTS. WILL CONTINUE TO MONITOR THE PATIENT.
--- NOTE | 2019-05-07 10:39 | NUR ---
FAMILY AT BEDSIDE. WILL CONTINUE TO MONITOR THE PATIENT
[2019-05-07 12:00] VITALS: BP 119/48
--- NOTE | 2019-05-07 12:21 | NUR ---
PATIENT IN NO DISTRESS. WILL CONTINUE TO MONITOR THE PATIENT
--- NOTE | 2019-05-07 14:28 | NUR ---
05/07/19 RD INITIAL ASSESSMENT COMPLETED PLEASE REFER TO NUTRITION ASSESSMENT UNDER CARE ACTIVITY FOR ESTIMATED NUTRITIONAL NEEDS. 1. RECOMMEND SWALLOW EVALUATION 2. [facility] WITH TEXTURE AND LIQUID CONSISTENCY RECOMMENDED BY SWALLOW EVALUATION. 3. DIET EDUCATION ON DIABETES AND COPD WERE PROVIDED. 4. RD TO FOLLOW-UP 3-5 DAYS, MODERATE RISK HEIDI PATEL RD
--- NOTE | 2019-05-07 14:42 | NUR ---
PATIENTS DAUGHTER IS CALLING PATIENT. I TOLD THE PATIENT THAT HER DAUGHTER IS CALLING HER. SHE SAID OK. PATIENT IN NO DISTRESS.
--- NOTE | 2019-05-07 15:45 | NUR ---
PATIENTS DAUGHTER AT BEDSIDE. NO SIGNS OF DISTRESS. WILL CONTINUE TO MONITOR THE PATIENT.
[2019-05-07 16:00] VITALS: BP 110/50
[2019-05-07] MEDS ORDERED: WARFARIN 5 MG TAB PO SCH (17:00)
--- NOTE | 2019-05-07 17:01 | NUR ---
ADMINISTERED MEDS. PATIENT TOLERATED WELL. EDUCATED ON SIDE EFFECTS. WILL CONTINUE TO MONITOR THE PATIENT
--- NOTE | 2019-05-07 18:20 | NUR ---
PATIENT IS EATING. WILL CONTINUE TO MONITOR. AT BEDSIDE
--- NOTE | 2019-05-07 19:05 | NUR ---
GAVE BEDSIDE REPORT TO TITLE ONE READING TEACHER NURSE. PATIENT ENDORSED IN STABLE CONDITION
--- NOTE | 2019-05-07 19:06 | NUR ---
RECEIVED BEDSIDE REPORT FROM AM SHIFT NURSE. PATIENT IS SIDE LYING ON BED AWAKE AND ALERT. NO SOB OR DISTRESS NOTED. ON 2LPM VIA NASAL CANNULA. IV ACCESS ON RIGHT HAND 22 GAUGE, PATENT AND INTACT. PATIENT IS AMBULATORY WITH COMMODE AT BEDSIDE. BOARD UPDATED. INITIAL ASSESSMENT DONE. BED IN LOW, SAFETY MEASURES IN PLACE. CALL LIGHT PLACED WITHIN PATIENT REACH. WILL CONTINUE TO MONITOR PATIENT.
[2019-05-07 20:20] VITALS: BP 115/49
--- NOTE | 2019-05-07 20:45 | NUR ---
BLOOD GLUCOSE RESULT OF 137. NO INSULIN COVERAGE NEEDED. WILL CONTINUE TO MONITOR PATIENT.
[2019-05-07] MEDS: MONTELUKAST SODIUM 10 MG TAB PO SCH (21:01)
[2019-05-07] MEDS: LORazepam 2 MG/ML VIAL IVP PRN (21:11)
--- NOTE | 2019-05-07 22:36 | NUR ---
VISUAL CHECK DONE. NO DISTRESS NOTED. VISIBLE CHEST RISE AND FALL NOTED. CALL LIGHT WITHIN PATIENT REACH. WILL CONTINUE TO MONITOR PATIENT.
--- NOTE | 2019-05-08 00:12 | NUR ---
VITALS TAKEN AT THIS TIME. NO DISTRESS NOTED. CALL LIGHT WITHIN PATIENT REACH. WILL CONTINUE TO MONITOR PATIENT.
[2019-05-08 00:20] VITALS: BP 116/40
[2019-05-08] MEDS: IPRATROPIUM 0.02% 0.5 MG/2.5 ML NEBU INH SCH ×4 (01:06→19:00)
[2019-05-08] MEDS: ALBUTEROL 0.083% 2.5 MG/3 ML NEBU INH SCH ×4 (01:06→19:00)
--- NOTE | 2019-05-08 02:45 | NUR ---
ROUNDS DONE. VISIBLE CHEST RISE AND FALL NOTED. WILL CONTINUE TO MONITOR PATIENT.
--- NOTE | 2019-05-08 04:20 | NUR ---
VISUAL CHECK DONE. VISIBLE CHEST RISE AND FALL NOTED. CALL LIGHT WITHIN PATIENT REACH. WILL CONTINUE TO MONITOR PATIENT.
[2019-05-08 04:30] VITALS: BP 118/43
[2019-05-08] MEDS: LEVOTHYROXINE 0.1 MG TAB PO SCH (05:51)
[2019-05-08] MEDS: INSULIN LISPRO SLIDING SCALE 100 UNITS/ML VIAL SUBQ PRN ×2 (06:35→17:24)
[2019-05-08] MEDS: BLOOD GLUCOSE MONITORING 1 DEV DEV FS SCH ×4 (06:49→20:17)
[2019-05-08] MEDS: metFORMIN 500 MG TAB PO SCH ×2 (06:57→17:26)
--- NOTE | 2019-05-08 07:03 | NUR ---
PATIENT IN STABLE CONDITION. CALL LIGHT PLACED WITHIN PATIENT REACH. WILL ENDORSE TO AM SHIFT NURSE FOR CONTINUITY OF CARE.
--- NOTE | 2019-05-08 07:15 | NUR ---
RECEIVED BEDSIDE REPORT FROM STATION MECHANIC APPRENTICE NURSE, PT IS GETTING A BREATHING TX AT THIS TIME. NO S/S OF ACUTE DISTRESS OR SOB. IV SITE IS NOTED ON THE R WRIST 22 G, SALINE LOCKED. SKIN IS INTACT. PT IS ON 2 L O2 NC. CALL LIGHT IS WITHIN REACH. COMMODE IS AT BEDSIDE. WILL CONTINUE TO MONITOR.
[2019-05-08 08:00] VITALS: BP 120/51
[2019-05-08 08:14] LABS: BASOPHILS % (AUTO) 0.1 % (0.0-2.0); HEMATOCRIT 33.4 % (36-48); HEMOGLOBIN 10.5 g/dL (12.0-16.0); LYMPHOCYTES # (AUTO) 1.8 K/uL (2.5-16.5); LYMPHOCYTES % (AUTO) 13.3 % (20.5-51.1); MEAN CORPUSCULAR HEMOGLOBIN 25 pg (27-31); MEAN CORPUSCULAR HGB CONC 31 g/dL (33-37); MEAN CORPUSCULAR VOLUME 79.2 fL (80-94); MONOCYTES % (AUTO) 7.1 % (1.7-9.3); NEUTROPHILS % (AUTO) 79.5 % (42.2-75.2); PLATELET COUNT (AUTO) 369 K/uL (140-450); RED BLOOD CELL COUNT(AUTO) 4.22 MIL/uL (4.20-5.40); RED CELL DISTRIBUTION WIDTH 17.4 % (11.6-13.7); WHITE BLOOD COUNT (AUTO) 13.9 K/uL (4.8-10.8)
[2019-05-08 08:28] LABS: PROTHROMBIN TIME 22.5 secs (10.8-13.4)
[2019-05-08 08:54] LABS: ANION GAP 11.1 (8-16); CARBON DIOXIDE 30.4 mmol/L (21-32); CHLORIDE 101 mmol/L (98-107); CREATININE 0.9 mg/dL (0.6-1.3); GLUCOSE 125 mg/dL (74-106); POTASSIUM 4.5 mmol/L (3.5-5.1); SODIUM SERUM 138 mmol/L (136-145); UREA NITROGEN, BLOOD 28 mg/dL (7-18)
[2019-05-08] MEDS ORDERED: FUROSEMIDE 40 MG/4 ML VIAL IVP SCH (09:00)
--- NOTE | 2019-05-08 09:20 | NUR ---
GOT A CALL FROM PHARMACY THAT PT'S COUMADIN HAS FALLEN OFF, AND NEEDS TO BE REORDERED. DR WILLOW BAIG IS HERE AND WAS MADE AWARE.
[2019-05-08] MEDS: GABAPENTIN 300 MG CAP PO SCH ×2 (09:27→20:28)
[2019-05-08] MEDS: OSELTAMIVIR PHOSPHATE 75 MG CAP PO SCH ×2 (09:27→20:28)
[2019-05-08] MEDS: CITALOPRAM 20 MG TAB PO SCH (09:27)
[2019-05-08] MEDS: FUROSEMIDE 40 MG/4 ML VIAL IVP SCH (09:28)
[2019-05-08] MEDS: methylPREDNISolone SS 40 MG/ML VIAL IVP SCH ×2 (09:28→20:29)
--- NOTE | 2019-05-08 09:43 | NUR ---
AM MEDS ADMINISTERED, PT TOLERATED WELL. NO S/S OF DISTRESS AT THIS TIME. NO SOB. CONTINUING TO MONITOR.
--- NOTE | 2019-05-08 09:44 | NUR ---
PHYSICAL THERAPIST AMBULATING WITH PT AT THIS TIME, WITH A 4WW. PT IS TOLERATING WELL.
--- NOTE | 2019-05-08 10:20 | NUR ---
PT SEEN BY DR GAVIN
[2019-05-08 12:00] VITALS: BP 123/55
--- NOTE | 2019-05-08 12:26 | NUR ---
PT SLEEPING COMFORTABLY, NO S/S OF DISTRESS. LUNCH TRAY PROVIDED. PT SAID SHE WILL EAT IT LATER, SHE IS NOT HUNGRY RIGHT NOW.
--- NOTE | 2019-05-08 14:50 | NUR ---
PATIENT REFUSED BREATHING TREATMENT AT THIS TIME. NO ACUTE RESPIRATORY DISTRESS NOTED AT THIS TIME. WILL CONTINUE TO MONITOR.
--- NOTE | 2019-05-08 15:01 | NUR ---
PT'S BED LINENS CHANGED.
[2019-05-08 16:00] VITALS: BP 109/46
--- NOTE | 2019-05-08 16:42 | NUR ---
PT IS VISITING WITH A RELATIVE AT BEDSIDE. NO S/S OF DISTRESS. PT HAD A BM THIS AFTERNOON.
[2019-05-08] MEDS ORDERED: WARFARIN 1 MG TAB PO SCH (17:00)
[2019-05-08] MEDS: HYDROcodone/APAP 5/325 MG 1 TAB TAB PO PRN (17:31)
--- NOTE | 2019-05-08 17:38 | NUR ---
ADMINISTERED ORDERED PM MEDS, PT TOLERATED WELL. ADMINISTERED 4 UNITS OF HUMALOG PER SLIDING SCALE PROTOCOL FOR BG OF 231. PT ALSO C/O ABD PAIN 10/14, ADMINISTERED PRN NORCO. WILL REASSESS WITHIN 1 HOUR.
--- NOTE | 2019-05-08 19:20 | NUR ---
ENDORSED PT TO GAS PUMPER NURSE IN STABLE CONDITION.
--- NOTE | 2019-05-08 19:21 | NUR ---
RECEIVED BEDSIDE REPORT FROM DAY RN. PT IS AAOX4. ON NC 2L O2. RESPIRATIONS ARE EQUAL AND UNLABORED. PT HAS SOME WHEEZING ON R SIDE AND DIMINISHED ON L. RT IS AT BEDSIDE. C/C SOB AND NON PRODUCTIVE COUGH. PT IS AMBULATORY WITH STANDBY ASSISTANCE. CAN WALK TO BATHROOM BUT USES BEDSIDE COMMODE AT TIMES D/T DIURETICS. IV ON R WRIST 22G SL. DENIES PAIN. POC DISCUSSED WITH PT AND FAMILY VERBALIZED UNDERSTANDING. CALL LIGHT IS WITHIN REACH. WILL CONTINUE TO MONITOR.
[2019-05-08 20:00] VITALS: BP 100/31
[2019-05-08] MEDS: MONTELUKAST SODIUM 10 MG TAB PO SCH (20:28)
--- NOTE | 2019-05-08 20:28 | NUR ---
VSS. RESPIRATIONS ARE EQUAL AND UNLABORED ON 2L O2 NC. LYNDA MEDICATIONS GIVEN PER ORDERS. REASON AND S/E OF ALL MEDICATIONS EXPLAINED. PT VERBALIZED UNDERSTANDING. BG 140 NO COVERAGE NEEDED. GAVE JELLO PER REQUEST. SAFETY MEASURES ARE IN PLACE. CALL LIGHT IS WITHIN REACH.
[2019-05-08] MEDS: LORazepam 2 MG/ML VIAL IVP PRN (23:11)
--- NOTE | 2019-05-08 23:11 | NUR ---
PRN ATIVAN ADMINISTERED. PT TOLERATED WELL. SAFETY MEASURES ARE IN PLACE. CALL LIGHT IS WITHIN REACH
[2019-05-09] VITALS: BP 124/42
--- NOTE | 2019-05-09 | NUR ---
VITAL SIGNS ARE WITHIN NORMAL LIMITS. DENIES PAIN. ALL NEEDS MET AT THIS TIME. CALL LIGHT IS WITHIN REACH.
[2019-05-09] MEDS: IPRATROPIUM 0.02% 0.5 MG/2.5 ML NEBU INH SCH ×3 (01:00→12:30)
[2019-05-09] MEDS: ALBUTEROL 0.083% 2.5 MG/3 ML NEBU INH SCH ×3 (01:00→12:30)
--- NOTE | 2019-05-09 01:04 | NUR ---
PER PATIENT, PATIENT DOES NOT WANT TO BE WOKEN UP FOR 0100 SCHEDULED TX, INFORMED TO CALL IF NEED TX, WILL CONT. TO MONITOR.
--- NOTE | 2019-05-09 02:32 | NUR ---
PATIENT IS SLEEPING WITH EYES CLOSED. CHEST RISE AND FALL. CALL LIGHT IS WITHIN REACH.
[2019-05-09 04:00] VITALS: BP 107/41
--- NOTE | 2019-05-09 04:00 | NUR ---
VITAL SIGNS ARE WITHIN NORMAL LIMITS. ALL SAFETY MEASURES ARE IN PLACE. CALL LIGHT IS WITHIN REACH.
[2019-05-09 05:32] LABS: BASOPHILS % (AUTO) 0.1 % (0.0-2.0); HEMOGLOBIN 10.8 g/dL (12.0-16.0); LYMPHOCYTES # (AUTO) 1.5 K/uL (2.5-16.5); LYMPHOCYTES % (AUTO) 9.9 % (20.5-51.1); MEAN CORPUSCULAR HEMOGLOBIN 25 pg (27-31); MEAN CORPUSCULAR HGB CONC 31 g/dL (33-37); MEAN CORPUSCULAR VOLUME 80.2 fL (80-94); MONOCYTES # (AUTO) 0.9 K/uL (0.8-1.0); MONOCYTES % (AUTO) 6.2 % (1.7-9.3); NEUTROPHILS # (AUTO) 12.4 K/uL (1.8-7.7); NEUTROPHILS % (AUTO) 83.8 % (42.2-75.2); PLATELET COUNT (AUTO) 396 K/uL (140-450); RED BLOOD CELL COUNT(AUTO) 4.37 MIL/uL (4.20-5.40); RED CELL DISTRIBUTION WIDTH 17.8 % (11.6-13.7); WHITE BLOOD COUNT (AUTO) 14.8 K/uL (4.8-10.8)
[2019-05-09] MEDS: LEVOTHYROXINE 0.1 MG TAB PO SCH (05:40)
[2019-05-09] MEDS: BLOOD GLUCOSE MONITORING 1 DEV DEV FS SCH ×3 (05:42→17:15)
[2019-05-09 06:05] LABS: PROTHROMBIN TIME 20.1 secs (10.8-13.4)
[2019-05-09 06:27] LABS: ALBUMIN 2.8 g/dL (3.4-5.0); ANION GAP 11.2 (8-16); ASPARTATE AMINOTRANSFERASE 32 U/L (15-37); CARBON DIOXIDE 31.3 mmol/L (21-32); CHLORIDE 100 mmol/L (98-107); GLUCOSE 166 mg/dL (74-106); POTASSIUM 4.5 mmol/L (3.5-5.1); SODIUM SERUM 138 mmol/L (136-145); TOTAL BILIRUBIN 0.3 mg/dL (0.0-1.0); UREA NITROGEN, BLOOD 36 mg/dL (7-18)
[2019-05-09] MEDS: metFORMIN 500 MG TAB PO SCH ×2 (06:39→17:35)
--- NOTE | 2019-05-09 06:39 | NUR ---
BG 141 NO COVERAGE. LYNDA METFORMIN GIVEN. PT TOLERATED WELL. ALL NEEDS MET. WILL ENDORSE TO DAY RN. PT IS STABLE.
--- NOTE | 2019-05-09 07:15 | NUR ---
RECEIVED BEDSIDE REPORT FROM RAMP AND CARGO SUPERVISOR NURSE KAYY. PT IS ASLEEP, NO S/S OF DISTRESS. CURRENTLY ON 2L O2 NC. SKIN INTACT. COMMODE IS AT BEDSIDE. IV SITE R WRIST 22 G, SALINE LOCKED. FALL PRECAUTIONS IN PLACE. CALL LIGHT IS WITHIN REACH. WILL CONTINUE TO MONITOR.
--- NOTE | 2019-05-09 07:28 | NUR ---
CHECKED ON PATIENT. PT WAS ASLEEP. PT REFUSED HHN TX . PT SAID SHE WANTS TO SLEEP. NO SOB OR DISTRESS NOTED.
[2019-05-09 08:00] VITALS: BP 102/40
--- NOTE | 2019-05-09 08:35 | NUR ---
PT HAVING CXR AT THIS TIME
[2019-05-09] MEDS: OSELTAMIVIR PHOSPHATE 75 MG CAP PO SCH (10:02)
[2019-05-09] MEDS: FUROSEMIDE 40 MG/4 ML VIAL IVP SCH (10:02)
[2019-05-09] MEDS: CITALOPRAM 20 MG TAB PO SCH (10:02)
[2019-05-09] MEDS: LEVOFLOXACIN 500 MG TAB PO SCH (10:02)
[2019-05-09] MEDS: GABAPENTIN 300 MG CAP PO SCH (10:02)
--- NOTE | 2019-05-09 10:17 | NUR ---
PT'S IV INFILTRATED. WILL ATTEMPT TO START A NEW IV
[2019-05-09] MEDS: methylPREDNISolone SS 40 MG/ML VIAL IVP SCH (10:47)
--- NOTE | 2019-05-09 10:51 | NUR ---
NEW IV INSERTED, L FA 22 G.
--- NOTE | 2019-05-09 12:30 | NUR ---
GOT CALL FROM DR BAIG, HE IS DISCHARGING THE PT TODAY.
--- NOTE | 2019-05-09 13:06 | NUR ---
GOT A CALL FROM DR BAIG, HE ASKED TO CALL PT'S PHARMACY TO LET THEM KNOW TO CALL HIM FOR DISCHARGE PRESCRIPTIONS. CALLED PT'S PHARMACY, [facility] IN [place], TO LET THEM KNOW TO GIVE DR WILLOW BAIG A CALL REGARDING PRESCRIPTION MEDICATIONS FOR PT'S DISCHARGE. PHARMACIST SAID HE WILL CALL THE DOCTOR RIGHT NOW. Addendum: 05/09/19 at 1309 by Alessandra Lakhani RN [facility]
--- NOTE | 2019-05-09 13:13 | NUR ---
DORIS Assessment/Discharge Plan High Risk DC Screen Yes Name: Otilia Vitale Home Relationship: daughter Pre-Admission Living Arrangements: Lives with Other Other: : Samir Acosta Prior ADL Needs Assistance Current Home Health Name/Tel: N/A Current DME/02 Name/Tel: walker, home O2 (concentrator and portable), no wheelchair Current Hospice Name/Tel: N/A Current Dialysis Name/Tel: N/A Healthcare Decision Maker: Patient Advance Directive No Information Taught: Advance Directive Community Resources Person Taught: Family Patient Teaching Tools: Community Resources Computer Generated Print Verbal Factors Affecting Learning: None Participation Level: Active Evaluation: Gestures Understanding Verbalizes Understanding Educator: DORIS Medina Discipline: Case Mgt/Social Svcs Tentative Discharge Plan Summary: Patient is a 73 year old female admitted for COPD exacerbation. I met with patient, patient's Samir Acosta, and patient's daughter Bella Vitale at bedside. Patient and Samir speak Ugandan. Bella speaks Mozambican and [place]an. Patient alert and oriented x4. Patient lives at home with Samir and plans to return home upon discharge. Patient's pcp is ([place], [place]) and she does not have any difficulty filling her prescriptions. Patient's daughter Otilia use to be her caregiver and now Samir will be the one helping patient. Patient will apply for [employer]. She requested printed information on IHSS, I provided her with printed general information on IHSS. Patient is taking medication for depression. She denied SI and HI. Se is not following up with a therapist/psychologist/psychiatrist. I provided her with education on [facility], www.[facility].org for community resources including list of counseling/mental health services. Patient/patient's family do not have any questions/concerns at this time. Software Publisher and/or Chain Dyer will follow up as needed. Signature: DORIS Medina Date: May 05, 2019
[2019-05-09] MEDS ORDERED: LEVO750T2 PO (14:07)
[2019-05-09] MEDS ORDERED: PRED20TA5 PO (14:12)
[2019-05-09 16:00] VITALS: BP 112/43
[2019-05-09] MEDS ORDERED: WARFARIN 1 MG TAB PO SCH (17:00)
--- NOTE | 2019-05-09 17:07 | NUR ---
PT IS READY TO DC, DC TEACHING PROVIDED AND SIGNATURES OBTAINED. PT IS WAITING FOR HER TO PICK HER UP, AFTER HE GETS OFF WORK.
--- NOTE | 2019-05-09 18:05 | NUR ---
PT HAS DC'D. PT DECLINED VACCINES. IV SITE AND WRIST BANDS WERE REMOVED. PT LEFT IN STABLE CONDITION WITH ALL HER BELONGINGS. PICKED UP BY .
[2019-05-09] MEDS ORDERED: ALBUTEROL SULFATE/IPRATROPIU 3 ML SOL IH SCH (19:00)
== END 2019-05-09 18:05 | disposition home or self-care (01) | DRG 871 ==
LOC: MED 11:44 → MTU 13:31
PROVIDERS: ADMIT Preventive Medicine Preventive Medicine/Occupational Environmental Medicine; ATTEND Preventive Medicine Preventive Medicine/Occupational Environmental Medicine
DX: A41.9 Sepsis, unspecified organism (principal); J96.00 Acute respiratory failure, unspecified whether with hypoxia or hypercapnia; J15.6 Pneumonia due to other Gram-negative bacteria; J44.1 Chronic obstructive pulmonary disease with (acute) exacerbation; Z68.41 Body mass index [BMI] 40.0-44.9, adult; J44.0 Chronic obstructive pulmonary disease with (acute) lower respiratory infection; E03.9 Hypothyroidism, unspecified; I10 Essential (primary) hypertension; E11.65 Type 2 diabetes mellitus with hyperglycemia; E66.9 Obesity, unspecified; E83.42 Hypomagnesemia; E83.52 Hypercalcemia; E88.09 Other disorders of plasma-protein metabolism, not elsewhere classified; Z79.01 Long term (current) use of anticoagulants; D64.9 Anemia, unspecified
CPT/HCPCS: 36415; 36600; 71045; 80048; 80053; 81003; 82803; 82948; 83036; 83735; 83880; 84100; 84436; 84443; 84484; 85025; 85610; 85651; 85730; 86140; 87040; 87070; 87081; 87086; 87205; 87804; 93971; 94640; 96365; 96375; 97110; 97116; 97530; 99285; J1815; J1940; J2060; J2920; J2930; J3475; J7030; J7613; J7644; Q0092

== ENCOUNTER 2021-08-05 13:31 | Emergency (ER) | payer OTHER, MEDICAID ==
[~2021-08-05] VITALS: Ht 167.6 cm; Wt 99.8 kg
[~2021-08-05 13:31] MED LIST changes: -CHOL200072 PO; -EPHE1TAB PO; +IBUP-2213 PO; -LEVO5TAB12 PO; +LEVO750T2 PO; +METF1000 PO; +MONT10TA35 PO; -OMEP40EC24 PO; +PRED20TA5 PO; -RANI300T6 PO; +WARF-101 PO; -[UNRECOGNIZED DRUG - CODE] PO
[2021-08-05 13:45] VITALS: BP 163/73
--- NOTE | 2021-08-05 13:45 | NUR ---
76 Y/O F AMBULATED TO BED 9, C/O COUGH AND CONGESTION X 3 WEEKS, ON SUNDAY THE PT STATES SHE HAD A GROUND LEVEL FALL AFTER BEING DIZZY, DENIES LOC, C/O LOWER BACK PAIN. NKDA PMD: DM, HYPOTHYROID, ARTHRITIS, ANXIETY, HTN
[2021-08-05] MEDS ORDERED: guaiFENesin 20 MG/ML UDC PO ONE (14:15)
[2021-08-05] MEDS ORDERED: predniSONE 20 MG TAB PO ONE (14:15)
[2021-08-05] MEDS ORDERED: ALBUTEROL SULFATE/IPRATROPIU 3 ML SOL IH ONE (14:15)
[2021-08-05] MEDS ORDERED: guaiFENesin DM 200/20 MG-10 ML 10 ML UDC ONE (14:18)
--- NOTE | 2021-08-05 14:25 | NUR ---
RT AT BEDSIDE FOR TREATMENT
--- NOTE | 2021-08-05 14:25 | NUR ---
WALKED BARBER SWAB DOWN TO LAB
--- NOTE | 2021-08-05 15:03 | NUR ---
XR AT BEDSIDE
[2021-08-05 17:11] LABS: BASOPHILS # (AUTO) 0.1 K/uL (0.00-0.22); EOSINOPHILS # (AUTO) 0.2 K/uL (0-0.4); EOSINOPHILS % (AUTO) 2.2 % (0.0-4.0); HEMATOCRIT 36.2 % (36-48); HEMOGLOBIN 11.9 g/dL (12.0-16.0); LYMPHOCYTES # (AUTO) 1.2 K/uL (2.5-16.5); LYMPHOCYTES % (AUTO) 16.2 % (20.5-51.1); MEAN CORPUSCULAR HEMOGLOBIN 30 pg (27-31); MEAN CORPUSCULAR HGB CONC 33 g/dL (33-37); MEAN CORPUSCULAR VOLUME 90.9 fL (80-94); MONOCYTES # (AUTO) 0.3 K/uL (0.8-1.0); NEUTROPHILS # (AUTO) 5.7 K/uL (1.8-7.7); NEUTROPHILS % (AUTO) 76.6 % (42.2-75.2); PLATELET COUNT (AUTO) 293 K/uL (140-450); RED BLOOD CELL COUNT(AUTO) 3.98 MIL/uL (4.20-5.40); WHITE BLOOD COUNT (AUTO) 7.4 K/uL (4.8-10.8)
[2021-08-05 17:27] LABS: ALBUMIN 3.6 g/dL (3.4-5.0); ANION GAP 11.5 (8-16); ASPARTATE AMINOTRANSFERASE 27 U/L (15-37); CARBON DIOXIDE 31.1 mmol/L (21-32); CHLORIDE 103 mmol/L (98-107); CREATININE 0.8 mg/dL (0.6-1.3); GLUCOSE 147 mg/dL (74-106); POTASSIUM 4.6 mmol/L (3.5-5.1); SODIUM SERUM 141 mmol/L (136-145); TOTAL BILIRUBIN 0.4 mg/dL (0.0-1.0); UREA NITROGEN, BLOOD 10 mg/dL (7-18)
[2021-08-05] MEDS ORDERED: ROB PO (18:17)
[2021-08-05] MEDS ORDERED: AZIT250T3 PO (18:17)
[2021-08-05] MEDS ORDERED: PRED20TA5 PO (18:17)
[2021-08-05 18:40] VITALS: BP 125/74
--- NOTE | 2021-08-05 18:40 | NUR ---
Patient discharged with v/s stable. Written and verbal after care instructions given and explained. Patient alert, oriented and verbalized understanding of instructions. Ambulatory with steady gait. All questions addressed prior to discharge. ID band removed. Patient advised to follow up with PMD. Rx of AZITHROMYCIN, PREDNISONE, ROBITUSSIN given. Patient educated on indication of medication including possible reaction and side effects. Opportunity to ask questions provided and answered.
== END 2021-08-05 18:40 | disposition home or self-care (01) ==
LOC: MED 13:31
DX: J45.901 Unspecified asthma with (acute) exacerbation (principal); J06.9 Acute upper respiratory infection, unspecified; Z20.822 Contact with and (suspected) exposure to COVID-19; I11.0 Hypertensive heart disease with heart failure; I50.9 Heart failure, unspecified; J44.9 Chronic obstructive pulmonary disease, unspecified; E11.9 Type 2 diabetes mellitus without complications; E07.9 Disorder of thyroid, unspecified; Z79.84 Long term (current) use of oral hypoglycemic drugs; Z79.899 Other long term (current) drug therapy
CPT/HCPCS: 36415; 71045; 80053; 83880; 84484; 85025; 87426; 94640; 94760; 99285; J7512; 99284